=== PATIENT | female | born 1960 | race Caucasian/White ===

== ENCOUNTER 2016-09-15 12:50 | Inpatient (IN) | payer BC ==
[~2016-09-15] VITALS: Ht 170.2 cm; Wt 140.2 kg
[2016-09-15] MEDS ORDERED: SOD BICARB 8.4% VIAL 50 ML IV ONE (12:51)
[2016-09-15] MEDS ORDERED: LIDOCAINE 2% 20 ML INJ ONE (12:51)
[2016-09-15] MEDS ORDERED: SODIUM CHLORIDE 0.9% 1,000 ML ONE ×4 (13:45→20:42)
[2016-09-15] MEDS ORDERED: FENTANYL 100 MCG/2 ML AMP ONE (14:52)
[2016-09-15] MEDS ORDERED: LIDOCAINE 1% MDV 20 ML ONE (15:07)
[2016-09-15] MEDS ORDERED: CEFTRIAXONE 1 GM VIAL ONE (16:37)
[2016-09-15] MEDS ORDERED: ACETAMINOPHEN 325 MG TAB ONE (16:41)
[2016-09-15] MEDS ORDERED: KETOROLAC 30 MG/ML VIAL ONE (17:40)
[2016-09-15] MEDS ORDERED: VANCOMYCIN 2,500 MG in SODIUM CHLORIDE 0.9% 500 ML IV STA (18:58)
[2016-09-15] MEDS ORDERED: PHARMACY TO DOSE VANCOMYCIN IV SCH (19:05)
[2016-09-15] MEDS ORDERED: MAG HYDROX 30 ML UDC PO PRN (20:05)
[2016-09-15] MEDS ORDERED: SALINE FLUSH 10 ML FLUSH PRN (20:05)
[2016-09-15] MEDS ORDERED: BISACODYL EC 5 MG TAB PO PRN (20:05)
[2016-09-15] MEDS ORDERED: ALU/MAG/SIM 30 ML UDC PO PRN (20:05)
[2016-09-15] MEDS ORDERED: BISACODYL 10 MG SUPP RECTAL PRN (20:05)
[2016-09-15] MEDS ORDERED: PHARMACY TO DOSE IV SCH (20:05)
[2016-09-15] MEDS ORDERED: Ibuprofen 400 MG TAB ONE (20:07)
[2016-09-15] MEDS ORDERED: DEXTROSE 50% SYRINGE 50 ML IV PRN (20:50)
[2016-09-15] MEDS ORDERED: GLUCAGON 1 MG VIAL IM PRN (20:50)
[2016-09-15] MEDS: MORPHINE 2 MG/ML SYR IV PRN (23:44)
[2016-09-16] VITALS (8 sets, daily range): BP systolic 83–148; RESP 16–20; TEMP 97.7–101.3; BMI 48.4
[2016-09-16] MEDS: OSELTAMIVIR 75 MG CAP PO SCH ×3 (00:57→20:34)
[2016-09-16] MEDS: PIPERACIL/TAZO 3.375GM/50ML 50 ML IV SCH ×5 (00:57→23:30)
[2016-09-16] MEDS: GABAPENTIN 400 MG CAP PO SCH ×2 (00:58→20:34)
[2016-09-16] MEDS: ACETAMINOPHEN 325 MG TAB PO PRN ×2 (04:06→15:17)
[2016-09-16] MEDS: SODIUM CHLORIDE 0.9% FLUSH BAG 500 ML IV SCH (05:04)
[2016-09-16] MEDS: LEVOTHYROXINE 0.05 MG TAB PO SCH (06:00)
[2016-09-16] MEDS: SODIUM CHLORIDE 0.9% 1,000 ML IV SCH ×2 (06:00→19:37)
[2016-09-16] MEDS: PANTOPRAZOLE 40 MG TAB PO SCH (06:02)
[2016-09-16] MEDS ORDERED: MISSING DOSE XX ONE (08:30)
[2016-09-16] MEDS: MORPHINE 2 MG/ML SYR IV PRN ×2 (09:07→16:25)
[2016-09-16] MEDS: CITALOPRAM 20 MG TAB PO SCH (09:09)
[2016-09-16] MEDS: ASPIRIN 81 MG CHEW TAB PO SCH (09:09)
[2016-09-16] MEDS: VANCOMYCIN 2,000 MG in SODIUM CHLORIDE 0.9% 500 ML IV SCH ×2 (09:09→20:30)
[2016-09-16] MEDS: ENOXAPARIN 40 MG/0.4 ML SYR SUBQ SCH (09:11)
[2016-09-16] MEDS: SALINE FLUSH 10 ML FLUSH SCH ×2 (09:11→20:00)
[2016-09-16] MEDS: ONDANSETRON 4 MG VIAL IV PRN (13:53)
[2016-09-17] VITALS (7 sets, daily range): BP systolic 100–141; RESP 18–20; TEMP 98.3–99.2
[2016-09-17] MEDS: SODIUM CHLORIDE 0.9% FLUSH BAG 500 ML IV SCH (03:32)
[2016-09-17] MEDS: MORPHINE 2 MG/ML SYR IV PRN ×4 (03:37→21:52)
[2016-09-17] MEDS: SODIUM CHLORIDE 0.9% 1,000 ML IV SCH ×2 (05:41→16:30)
[2016-09-17] MEDS: PIPERACIL/TAZO 3.375GM/50ML 50 ML IV SCH ×3 (05:54→17:03)
[2016-09-17] MEDS: LEVOTHYROXINE 0.05 MG TAB PO SCH (06:05)
[2016-09-17] MEDS: PANTOPRAZOLE 40 MG TAB PO SCH (06:05)
[2016-09-17] MEDS: SALINE FLUSH 10 ML FLUSH SCH ×2 (09:12→19:41)
[2016-09-17] MEDS: VANCOMYCIN 2,000 MG in SODIUM CHLORIDE 0.9% 500 ML IV SCH ×2 (09:14→19:41)
[2016-09-17] MEDS: ENOXAPARIN 40 MG/0.4 ML SYR SUBQ SCH (09:15)
[2016-09-17] MEDS: OSELTAMIVIR 75 MG CAP PO SCH ×2 (09:15→20:50)
[2016-09-17] MEDS: CITALOPRAM 20 MG TAB PO SCH (09:15)
[2016-09-17] MEDS: ASPIRIN 81 MG CHEW TAB PO SCH (09:15)
[2016-09-17] MEDS: GABAPENTIN 400 MG CAP PO SCH (20:50)
[2016-09-18] MEDS: PIPERACIL/TAZO 3.375GM/50ML 50 ML IV SCH ×4 (00:51→18:08)
[2016-09-18] MEDS: MORPHINE 2 MG/ML SYR IV PRN ×4 (05:04→20:17)
[2016-09-18] MEDS: VANCOMYCIN 1,750 MG in SODIUM CHLORIDE 0.9% 500 ML IV SCH ×3 (05:05→20:18)
[2016-09-18] MEDS: SODIUM CHLORIDE 0.9% FLUSH BAG 500 ML IV SCH (06:00)
[2016-09-18] MEDS: LEVOTHYROXINE 0.05 MG TAB PO SCH (06:08)
[2016-09-18] MEDS: PANTOPRAZOLE 40 MG TAB PO SCH (06:08)
[2016-09-18 07:30] VITALS: BP_SYST 153; RESP 18; TEMP 98.5
[2016-09-18] MEDS: SALINE FLUSH 10 ML FLUSH SCH ×2 (08:00→20:00)
[2016-09-18] MEDS: ASPIRIN 81 MG CHEW TAB PO SCH (09:22)
[2016-09-18] MEDS: CITALOPRAM 20 MG TAB PO SCH (09:23)
[2016-09-18] MEDS: Carvedilol 6.25 MG TAB PO SCH ×2 (09:23→20:15)
[2016-09-18] MEDS: Losartan 50 MG TAB PO SCH (09:23)
[2016-09-18] MEDS: OSELTAMIVIR 75 MG CAP PO SCH ×2 (09:23→20:15)
[2016-09-18] MEDS: ENOXAPARIN 40 MG/0.4 ML SYR SUBQ SCH (09:24)
[2016-09-18 11:07] VITALS: BP_SYST 139; RESP 16; TEMP 98.6
[2016-09-18 15:12] VITALS: BP_SYST 139; RESP 18; TEMP 99.1
[2016-09-18] MEDS: SODIUM CHLORIDE 0.9% 1,000 ML IV SCH (15:19)
[2016-09-18] MEDS: GABAPENTIN 400 MG CAP PO SCH (20:15)
[2016-09-18] MEDS: ONDANSETRON 4 MG VIAL IV PRN (20:16)
[2016-09-18 20:20] VITALS: BP_SYST 138; RESP 18; TEMP 99
[2016-09-18 23:21] VITALS: BP_SYST 127; RESP 18; TEMP 99.1
[2016-09-19] MEDS: PIPERACIL/TAZO 3.375GM/50ML 50 ML IV SCH ×2 (00:22→06:06)
[2016-09-19] MEDS: SODIUM CHLORIDE 0.9% FLUSH BAG 500 ML IV SCH (02:57)
[2016-09-19] MEDS: VANCOMYCIN 1,750 MG in SODIUM CHLORIDE 0.9% 500 ML IV SCH (03:26)
[2016-09-19] MEDS: MORPHINE 2 MG/ML SYR IV PRN ×4 (03:27→18:22)
[2016-09-19 03:44] VITALS: BP_SYST 137; RESP 20; TEMP 99
[2016-09-19] MEDS: LEVOTHYROXINE 0.05 MG TAB PO SCH (06:06)
[2016-09-19] MEDS: PANTOPRAZOLE 40 MG TAB PO SCH (06:06)
[2016-09-19] MEDS: ONDANSETRON 4 MG VIAL IV PRN ×3 (06:36→18:20)
[2016-09-19 07:29] VITALS: BP_SYST 138; RESP 108; TEMP 98.6
[2016-09-19 08:19] VITALS: Ht 170.2 cm; Wt 140.2 kg
[2016-09-19] MEDS: SALINE FLUSH 10 ML FLUSH SCH ×2 (09:19→20:00)
[2016-09-19] MEDS: ASPIRIN 81 MG CHEW TAB PO SCH (09:20)
[2016-09-19] MEDS: OSELTAMIVIR 75 MG CAP PO SCH ×2 (09:20→20:49)
[2016-09-19] MEDS: Carvedilol 6.25 MG TAB PO SCH ×2 (09:20→20:49)
[2016-09-19] MEDS: ENOXAPARIN 40 MG/0.4 ML SYR SUBQ SCH (09:20)
[2016-09-19] MEDS: Losartan 50 MG TAB PO SCH (09:20)
[2016-09-19] MEDS ORDERED: MISSING DOSE XX ONE (09:30)
[2016-09-19] MEDS: CITALOPRAM 20 MG TAB PO SCH (10:31)
[2016-09-19 11:13] VITALS: BP_SYST 124; RESP 18; TEMP 98.7
[2016-09-19] MEDS ORDERED: SODIUM CHLORIDE 0.9% 1,000 ML IV SCH (11:15)
[2016-09-19] MEDS: AZITHROMYCIN 250 MG TAB PO SCH (11:38)
[2016-09-19] MEDS: CEFUROXIME 250 MG TAB PO SCH ×2 (11:39→20:49)
[2016-09-19 15:19] VITALS: BP_SYST 130; RESP 18; TEMP 98.4
[2016-09-19 19:28] VITALS: BP_SYST 136; RESP 16; TEMP 98.9
[2016-09-19] MEDS: GABAPENTIN 400 MG CAP PO SCH (20:50)
[2016-09-20 04:00] VITALS: BP_SYST 143; RESP 18; TEMP 97.8
[2016-09-20] MEDS: MORPHINE 2 MG/ML SYR IV PRN (05:07)
[2016-09-20] MEDS: SODIUM CHLORIDE 0.9% FLUSH BAG 500 ML IV SCH (05:42)
[2016-09-20] MEDS: PANTOPRAZOLE 40 MG TAB PO SCH (06:15)
[2016-09-20] MEDS: LEVOTHYROXINE 0.05 MG TAB PO SCH (06:15)
[2016-09-20 07:40] VITALS: BP_SYST 134; RESP 18; TEMP 98.3
[2016-09-20] MEDS: CITALOPRAM 20 MG TAB PO SCH (07:46)
[2016-09-20] MEDS: AZITHROMYCIN 250 MG TAB PO SCH (07:47)
[2016-09-20] MEDS: CEFUROXIME 250 MG TAB PO SCH (07:47)
[2016-09-20] MEDS: OSELTAMIVIR 75 MG CAP PO SCH (07:47)
[2016-09-20] MEDS: ASPIRIN 81 MG CHEW TAB PO SCH (07:47)
[2016-09-20] MEDS: Losartan 50 MG TAB PO SCH (07:48)
[2016-09-20] MEDS: Carvedilol 6.25 MG TAB PO SCH (07:48)
[2016-09-20] MEDS: SALINE FLUSH 10 ML FLUSH SCH (07:48)
[2016-09-20] MEDS: ENOXAPARIN 40 MG/0.4 ML SYR SUBQ SCH (07:49)
[2016-09-20] MEDS: ONDANSETRON 4 MG VIAL IV PRN (08:02)
[2016-09-20] MEDS ORDERED: ACETAMINOPHEN 500 MG TAB PO SCH (09:25)
[2016-09-20 14:22] VITALS: BP_SYST 134; RESP 18; TEMP 98.3
== END 2016-09-20 15:07 | disposition home or self-care (01) | DRG 871 ==
LOC: ENRESERVDT → ENRESERVTM → ER 12:50 → EMR 17:52 → ENPENDDIS 17:52 → 4THW 23:10
PROVIDERS: ADMIT Internal Medicine; ATTEND Internal Medicine
PROC: 009U3ZX Drainage of Spinal Canal, Percutaneous Approach, Diagnostic (ICD-10-PCS; principal; 2016-09-15)
CPT/HCPCS: 36415; 36600; 62270; 70450; 71020; 77003; 80048; 80053; 81001; 82945; 82947; 83605; 83690; 84157; 85025; 85610; 85730; 86403; 87040; 87071; 87088; 87205; 87804; 87880; 88108; 89051; 94667; 94799; 96361; 96365; 96366; 96375; 99223; 99232; 99239